=== PATIENT | male | born 1930 | race Caucasian/White ===

== ENCOUNTER → 2016-10-15 | Outpatient (CLI) | payer OTHER, BC ==
[~2016-10-15] MED LIST: ASCORBIC ACID250 MG PO; ASCORBIC ACID500 M3 PO; ASPIR-TRIN325 M1 PO; ASPIRIN325 MG PO; AVODART0.5 MG PO; D3 + K2 DOTS 11 EACH PO; DIGITEK250 MC2 PO; FLOMAX0.4 M1 PO; FLOMAX0.4 MG PO; LIPITOR; LIPITOR20 MG PO; MEN'S ONE DAIL1 EACH PO; NATURAL VITA400 UNI2 PO; OMEGA FISH OIL; PRAVASTATIN SOD10 MG PO; PRAVASTATIN SOD20 MG PO; PRESERVISION A1 EAC2 PO; PRINIVIL10 MG PO; RESTASIS 01 DROP/0.4 BOTH EYES; TAZTIA XT360 MG PO; VITAMIN C500 M1 PO; VITAMIN C500 M2 PO; XARELTO15 MG PO; ZESTRIL,PRINIVI10 MG PO
== END | disposition home or self-care (01) ==
LOC: RAD 14:30
DX: R90.89 Other abnormal findings on diagnostic imaging of central nervous system (principal); R53.1 Weakness
CPT/HCPCS: 70450